=== PATIENT | male | born 1975 ===

== ENCOUNTER 2018-05-27 08:55 | Emergency (ER) | payer OTHER ==
[~2018-05-27] VITALS: Ht 182.9 cm; Wt 120.2 kg
[2018-05-27] MEDS ORDERED: NIFE60TA3 (09:06)
[2018-05-27] MEDS ORDERED: ZIAC 10/6.25 MG1 TAB (09:07)
== END 2018-05-27 13:16 | disposition home or self-care (01) ==
LOC: ER 08:55
DX: K29.70 Gastritis, unspecified, without bleeding (principal)